=== PATIENT | male | born 1985 | race African-American/Black ===

== ENCOUNTER 2018-06-27 22:34 | Emergency (ER) | payer OTHER ==
[~2018-06-27] VITALS: Ht 185.4 cm; Wt 83.9 kg
[~2018-06-27 22:34] MED LIST: ERYTHROMYCIN E3.5 G3 OPHTHALMIC; FLAGYL500 MG PO; NOHOMEMEDICATIONS; NORCO 5-325 TA1 EACH PO; PENICILLIN VK250 MG PO; PENICILLIN VK500 MG PO
[2018-06-27] MEDS ORDERED: AUGMENTIN 875-1 EACH PO (23:23)
[2018-06-27 23:50] VITALS: BP 138/98
== END 2018-06-28 00:13 | disposition home or self-care (01) ==
LOC: ER 22:34
DX: S61.233A Puncture wound without foreign body of left middle finger without damage to nail, initial encounter (principal); S61.235A Puncture wound without foreign body of left ring finger without damage to nail, initial encounter; F17.210 Nicotine dependence, cigarettes, uncomplicated; W54.0XXA Bitten by dog, initial encounter; Y93.89 Activity, other specified; Y92.89 Other specified places as the place of occurrence of the external cause; Y99.8 Other external cause status

== ENCOUNTER 2020-05-09 23:42 | Emergency (ER) | payer OTHER ==
[~2020-05-09] VITALS: Ht 167.6 cm; Wt 74.8 kg
[~2020-05-09 23:42] MED LIST changes: +AUGMENTIN 875-1 EACH PO
[2020-05-10 01:13] LABS: URINE BILIRUBIN NEGATIVE (Negative); URINE BLOOD TRACE (Negative); URINE CLARITY CLEAR; URINE COLOR YELLOW; URINE GLUCOSE-RANDOM* NEGATIVE (Negative); URINE KETONES NEGATIVE (Negative); URINE LEUKOCYTES-REFLEX NEGATIVE (Negative); URINE NITRITE-REFLEX NEGATIVE (Negative); URINE PROTEIN (DIPSTICK) 1+ (Negative); URINE SPECIFIC GRAVITY <= 1.005 (1.005-1.035)
[2020-05-10 01:22] LABS: CASTS None Seen /LPF (None Seen); MUCUS 0-3 Light strn/LPF (None Seen); SQUAMOUS 0-3 Few /LPF (0-3); TRANSITIONAL EPITHEL CELL 0-3 Few /LPF (None Seen); URINE RBC None Seen /HPF (0-2); URINE WBC-REFLEX 0-5 Rare /HPF (0-5)
[2020-05-10 01:23] LABS: BACTERIA-REFLEX None Seen /HPF (None Seen); CRYSTALS None Seen /LPF (None Seen)
[2020-05-10 01:29] LABS: AMP/METHAMP Negative (Negative); BARBITURATES Negative (Negative); BENZODIAZEPINES Negative (Negative); COCAINE Negative (Negative); METHADONE Negative (Negative); OPIATES Negative (Negative); PCP Negative (Negative)
[2020-05-10 01:30] LABS: ABSOLUTE NEUTROPHILS 2.4 thou/uL (1.4-8.2); BASOPHILS 0.9 % (0.0-2.0); EOSINOPHILS 0.5 % (0.0-3.0); HEMATOCRIT 43.5 % (42.0-52.0); HEMOGLOBIN 14.3 gm/dL (14.0-18.0); LYMPHOCYTES 39.8 % (24.0-44.0); MCH 30.3 pg (26.0-34.0); MCHC 32.9 g/dL (28.0-37.0); MCV 92.1 fL (80.0-100.0); MONOCYTES 9.4 % (1.0-8.0); PLATELET COUNT 104 thou/uL (150-400); POLYS 49.4 % (36.0-66.0); RBC 4.72 mil/uL (4.50-6.00); RDW 15.5 % (10.5-14.5); WBC 4.9 thou/uL (4.0-11.0)
[2020-05-10 01:46] LABS: ALBUMIN 4.1 g/dL (3.4-5.0); ANION GAP 16 mmol/L (7-16); BUN 6 mg/dL (7-18); CALCIUM 8.9 mg/dL (8.5-10.1); CHLORIDE 102 mmol/L (98-107); CO2 26 mmol/L (21-32); DIRECT BILIRUBIN 0.4 mg/dL (<0.1-0.2); GLUCOSE 114 mg/dL (74-106); SGOT 179 U/L (15-37); SGPT 134 U/L (30-65); SODIUM 144 mmol/L (136-145); TOTAL BILIRUBIN 0.9 mg/dL (0.2-1.0); TOTAL PROTEIN 7.2 g/dL (6.4-8.2); TROPONIN-I <0.06 ng/mL (<0.06)
[2020-05-10 01:50] LABS: POTASSIUM 2.6 mmol/L (3.5-5.1)
[2020-05-10 05:40] VITALS: BP 147/98
--- NOTE | 2020-05-10 07:15 | EKG ---
[place] [address] [facility] [employer] [facility] [place] [address] ELECTROCARDIOGRAM REPORT Name: LONI DAVIS Room #: DEP [id number] Admission: 05/09/20 Attend Phys: Discharge: 05/10/20 Date of : 85 Report #: [id number] [facility] ED Test Date: 2020-05-10 Test Time: 02:29:03 Pat Name: LONI DAVIS Department: Room: Gender: M [employer]: AUREA : 1985 Requested By: Veronica Denton Order Number: [id number] MD: Kulwant Simmnos Measurements Intervals [place] Rate: 141 P: 78 FL: 119 QRS: 84 QRSD: 87 T: -72 QT: 308 QTc: 472 Interpretive Statements Sinus tachycardia Nonspecific T abnormalities, inferior leads Borderline prolonged QT interval Artifact in lead(s) III,aVL,aVF,V1,V2,V4,V5,V6 No previous ECG available for comparison Electronically Signed On 05-10-2020 7:15:44 [employer] by Kulwant Simmons [email or web address] <ELECTRONICALLY SIGNED> By: Kulwant Simmons MD, [facility] [id number] [phone] Kulwant Simmons MD, [facility] /EPI
== END 2020-05-10 05:42 | disposition home or self-care (01) ==
LOC: ER 23:42
PROVIDERS: Emergency Medicine
DX: F10.920 Alcohol use, unspecified with intoxication, uncomplicated (principal); M79.604 Pain in right leg; M79.605 Pain in left leg; F17.210 Nicotine dependence, cigarettes, uncomplicated; Z79.2 Long term (current) use of antibiotics

== ENCOUNTER 2020-12-26 18:42 | Emergency (ER) | payer OTHER ==
[~2020-12-26] VITALS: Ht 185.4 cm; Wt 68.0 kg
[2020-12-26 19:14] VITALS: BP 126/89
[2020-12-26] MEDS ORDERED: TOBRADEX EYE DRO5 ML TOP (19:49)
== END 2020-12-26 21:00 | disposition home or self-care (01) ==
LOC: ER 18:42
DX: H10.33 Unspecified acute conjunctivitis, bilateral (principal); F17.210 Nicotine dependence, cigarettes, uncomplicated

== ENCOUNTER 2020-12-28 20:58 | Emergency (ER) | payer OTHER ==
[~2020-12-28] VITALS: Ht 185.4 cm; Wt 72.6 kg
[~2020-12-28 20:58] MED LIST changes: +TOBRADEX EYE DRO5 ML TOP
[2020-12-28 21:04] VITALS: BP 139/95
[2020-12-28] MEDS ORDERED: POLYMYXIN B/TMP10 ML OPHTHALMIC (22:08)
== END 2020-12-28 22:00 | disposition home or self-care (01) ==
LOC: ER 20:58
DX: H10.33 Unspecified acute conjunctivitis, bilateral (principal); F17.210 Nicotine dependence, cigarettes, uncomplicated

== ENCOUNTER 2021-01-10 18:45 | Emergency (ER) | payer OTHER ==
[~2021-01-10] VITALS: Ht 185.4 cm; Wt 74.8 kg
[~2021-01-10 18:45] MED LIST changes: +POLYMYXIN B/TMP10 ML OPHTHALMIC
[2021-01-10 19:37] VITALS: BP 121/84
== END 2021-01-10 19:58 | disposition home or self-care (01) ==
LOC: ER 18:45
DX: H57.89 Other specified disorders of eye and adnexa (principal); F12.90 Cannabis use, unspecified, uncomplicated; F17.210 Nicotine dependence, cigarettes, uncomplicated; Z53.21 Procedure and treatment not carried out due to patient leaving prior to being seen by health care provider; Z98.890 Other specified postprocedural states

== ENCOUNTER 2021-01-15 10:22 | Emergency (ER) | payer OTHER ==
[~2021-01-15] VITALS: Ht 185.4 cm; Wt 72.6 kg
[2021-01-15 10:26] VITALS: BP 124/91
[2021-01-15] MEDS ORDERED: LEVOFLOXACIN5 ML OPHTHALMIC (10:43)
== END 2021-01-15 11:09 | disposition home or self-care (01) ==
LOC: ER 10:22
DX: H10.89 Other conjunctivitis (principal); F17.210 Nicotine dependence, cigarettes, uncomplicated; Z98.890 Other specified postprocedural states; Z79.899 Other long term (current) drug therapy

== ENCOUNTER 2021-01-25 10:20 | Emergency (ER) | payer OTHER ==
[~2021-01-25] VITALS: Ht 185.4 cm; Wt 72.6 kg
[~2021-01-25 10:20] MED LIST changes: +LEVOFLOXACIN5 ML OPHTHALMIC
[2021-01-25 12:36] VITALS: BP 123/87
== END 2021-01-25 12:37 | disposition home or self-care (01) ==
LOC: ER 10:20
DX: H57.13 Ocular pain, bilateral (principal); F17.210 Nicotine dependence, cigarettes, uncomplicated

== ENCOUNTER 2021-04-12 13:22 | Emergency (ER) | payer OTHER ==
[~2021-04-12] VITALS: Ht 185.4 cm; Wt 72.6 kg
[2021-04-12] MEDS ORDERED: NOHOMEMEDICATIONS (13:29)
[2021-04-12 14:38] LABS: HEMATOCRIT 45.9 % (42.0-52.0); HEMOGLOBIN 15.1 gm/dL (14.0-18.0); MCH 30.7 pg (26.0-34.0); MCHC 32.9 g/dL (28.0-37.0); MCV 93.3 fL (80.0-100.0); PLATELET COUNT 152 thou/uL (150-400); RBC 4.92 mil/uL (4.50-6.00); WBC 7.3 thou/uL (4.0-11.0)
[2021-04-12 14:50] LABS: CALCIUM 9.3 mg/dL (8.5-10.1); CREATININE 0.8 mg/dL (0.7-1.3); POTASSIUM 3.7 mmol/L (3.5-5.1)
[2021-04-12 14:57] LABS: TOTAL BILIRUBIN 0.4 mg/dL (0.2-1.0); TOTAL PROTEIN 7.8 g/dL (6.4-8.2)
[2021-04-12] MEDS ORDERED: ZOFRAN ODT4 MG PO (15:03)
[2021-04-12 15:13] LABS: URINE BILIRUBIN NEGATIVE (Negative); URINE BLOOD NEGATIVE (Negative); URINE CLARITY CLEAR; URINE COLOR YELLOW; URINE GLUCOSE-RANDOM* NEGATIVE (Negative); URINE KETONES NEGATIVE (Negative); URINE LEUKOCYTES-REFLEX NEGATIVE (Negative); URINE NITRITE-REFLEX NEGATIVE (Negative); URINE PROTEIN (DIPSTICK) NEGATIVE (Negative); URINE UROBILINOGEN 0.2 E.U./dl (0.2-1.0)
[2021-04-12 15:29] LABS: AMP/METHAMP Negative (Negative); BARBITURATES Negative (Negative); BENZODIAZEPINES Negative (Negative); COCAINE Negative (Negative); METHADONE Negative (Negative); OPIATES Negative (Negative); PCP Negative (Negative)
[2021-04-12 15:57] VITALS: BP 150/99
[2021-04-12 16:09] LABS: ABSOLUTE NEUTROPHILS 6.4 thou/uL (1.4-8.2); ATYPICAL LYMPHS 3 %
== END 2021-04-12 15:57 | disposition home or self-care (01) ==
LOC: ER 13:22
PROVIDERS: Physician Assistant
DX: U07.1 COVID-19 (principal); R11.2 Nausea with vomiting, unspecified; E86.0 Dehydration; F10.10 Alcohol abuse, uncomplicated; Y90.9 Presence of alcohol in blood, level not specified; F12.10 Cannabis abuse, uncomplicated; F17.210 Nicotine dependence, cigarettes, uncomplicated